=== PATIENT | female | born 1995 | race Caucasian/White ===

== ENCOUNTER 2021-11-23 13:57 | Observation (INO) | payer OTHER ==
[2021-11-23] VITALS (11 sets, daily range): BP systolic 93–110; BP diastolic 51–69
[~2021-11-23] VITALS: Ht 160 cm; Wt 59.1 kg
[2021-11-23 14:36] LABS: BASOPHILS % (AUTO) 0.1 % (0-1); EOSINOPHILS % (AUTO) 0.3 % (0-6); HEMATOCRIT 36.6 % (35.0-45.0); HEMOGLOBIN 12.3 g/dl (12.0-16.0); LYMPHOCYTES # (AUTO) 2.2 X10'3 (1.1-4.8); LYMPHOCYTES % (AUTO) 12.5 % (21-51); MEAN CORPUSCULAR HEMOGLOBIN 31.5 PG (27.0-31.0); MEAN CORPUSCULAR HGB CONC 33.7 g/dL (33.0-36.5); MEAN CORPUSCULAR VOLUME 93.5 FL (78-98); MEAN PLATELET VOLUME 7.4 FL (7.4-10.4); MONOCYTES # (AUTO) 0.8 X10'3 (0-0.9); MONOCYTES % (AUTO) 4.4 % (2-12); NEUTROPHILS # (AUTO) 14.3 X10'3 (1.8-7.7); NEUTROPHILS % (AUTO) 82.7 % (42-75); PLATELET COUNT 300 X10'3 (140-440); RED BLOOD COUNT 3.92 X10'6 (4.20-5.60); WHITE BLOOD COUNT 17.3 X10'3 (4.5-11.0)
[2021-11-23 15:03] LABS: ALANINE AMINOTRANSFERASE 18 U/L (12-78); ALBUMIN 3.9 G/DL (3.4-5.0); ALBUMIN/GLOBULIN RATIO 1.3 (1.1-1.5); ALKALINE PHOSPHATASE 52 IU/L (46-116); ANION GAP 11 (8-16); ASPARTATE AMINO TRANSFERASE 14 U/L (10-37); BILIRUBIN,TOTAL 0.2 MG/DL (0.1-1.0); BLOOD UREA NITROGEN 12 MG/DL (7-18); BUN/CREATININE RATIO 16.7 (6.6-38.0); CALCIUM 8.5 MG/DL (8.5-10.1); CHLORIDE 103 MMOL/L (99-107); CREATININE 0.72 MG/DL (0.40-0.90); GLUCOSE 113 MG/DL (70-104); POTASSIUM 4.2 MMOL/L (3.5-5.1); SODIUM 137 MMOL/L (135-145); TOTAL CARBON DIOXIDE 22.8 MMOL/L (24-32); TOTAL PROTEIN 6.9 G/DL (6.4-8.2); eGFR > 90 ML/MIN
[2021-11-23] MEDS ORDERED: normal saline 1000ML IV soln IVB ONE (15:30)
[2021-11-23] MEDS ORDERED: morphine 4 MG/ML inj SYRINge IV ONE (15:30)
[2021-11-23] MEDS ORDERED: ondansetron/PF 4mg/2ml inj IV ONE (15:30)
[2021-11-23 16:39] LABS: CLARITY,URINE CLEAR (Clear); COLOR,URINE YELLOW (Yellow); GLUCOSE, URINE NEGATIVE (Neg); KETONES,URINE >=80 mg/dl (Neg); LEUKOCYTE ESTERASE ,URINE NEGATIVE (Neg); NITRITES, URINE NEGATIVE (Neg); OCCULT BLOOD,URINE NEGATIVE (Neg); PROTEIN,URINE NEGATIVE (Neg); UROBILINOGEN,URINE 0.2 E.U/dL (0.2-1.0)
[2021-11-23 16:40] LABS: UA COLLECTION TYPE VOIDED
[2021-11-23 16:41] LABS: URINE HCG NEGATIVE (NEG)
[2021-11-23] MEDS ORDERED: piperacillin/tazo 4.5gm/100ml 100 ML IV SCH (17:30)
[2021-11-23] MEDS ORDERED: piperacillin/tazo 4.5gm/100ml 100 ML IV ONE (17:34)
[2021-11-23] MEDS ORDERED: mag hydrox/Alum hydrox/simeth 30ml oral suspension PO PRN (17:50)
[2021-11-23] MEDS ORDERED: morphine 2 MG/ML inj. syringe IV PRN ×3 (17:50→23:15)
[2021-11-23] MEDS ORDERED: acetaminophen 325mg tablet PO PRN (17:50)
[2021-11-23] MEDS ORDERED: magnesium hydroxide 30ml (MOM) UD suspension PO PRN (17:50)
[2021-11-23] MEDS ORDERED: ondansetron/PF 4mg/2ml inj IV PRN ×2 (17:50→23:15)
--- NOTE | 2021-11-23 18:00 | NUR ---
Placed in ER room 9. at the bedside. Last food was at 0900 and last drink was at 1200.
--- NOTE | 2021-11-23 18:18 | NUR ---
Note diamante in EDM - 11/23/21 at 1831 by KIM Pt given and understands d/c instructions. IV d/c'd, catheter was intact. Pt had Neville cath with a leg bag placed. Ambulatory with a slow gait.
--- NOTE | 2021-11-23 18:51 | NUR ---
Pt in bed sitting up, at bedside. Took report from day shift RN.
[2021-11-23] MEDS ORDERED: NO HOME MEDS (19:09)
--- NOTE | 2021-11-23 19:22 | NUR ---
Patient in room ED 9. I have received report from MAIKEL LOVE RN and had the opportunity to ask questions and assume patient care. Addendum: 11/23/21 at 1923 by Padmaja Pizarro RN Amended: Links added.
[2021-11-23] MEDS: docusate sod 100mg capsule PO SCH (20:00)
[2021-11-23] MEDS: normal saline 1000ml 1,000 ML IV SCH (20:18)
--- NOTE | 2021-11-23 20:57 | NUR ---
PT HAS VOIDED NPO SINCE 1100AM TODAY, SHE IS DARTED HAROON WIPES TO ABD DONE, IV ZOSYN INFUSING, AT THE BEDSIDE WITH THE PT AWARE SHE IS GOING TO SURGERY. SHE HAS BEEN UP TO [facility] TO VOID WELL. IV IS IN THE LEFT AC 20. PT NOW WILL GO TO OR TONIGHT.
--- NOTE | 2021-11-23 21:01 | NUR ---
SWAB FOR MRSA AND COVID DONE WELL AND IN THE LAB.
--- NOTE | 2021-11-23 21:15 | NUR ---
PT TAKEN WITH 2 IV PUMPS AND CHARGERS TO THE OR WITH OR LUIS EDUARDO AND RADHIKA, ACCOMPANIED BY PT , OR TECH WILL SHOW HIM ROOM TO WAIT IN FOR THE MD TO TALK WITH HIM AFTER THE SURGERY. AWARE SHE WILL BE IN THE RECOVERY ROOM FOR AWHILE AFTERWARDS SO AFTER HE TALKS WITH MD HE CAN GO HOME AND CALL US LATER TO CHECK IN ON THE PT.
[2021-11-23] MEDS ORDERED: BUPIVAcaine 0.5% inj/PF 30 ML ONE (21:17)
[2021-11-23] MEDS ORDERED: fentaNYL /PF 50mcg/ml 5ml ampule ONE (21:24)
[2021-11-23] MEDS ORDERED: midazolam 1 mg/ML 2ml injection ONE (21:24)
[2021-11-23] MEDS ORDERED: propofol inj 20 ML IV ONE (21:26)
[2021-11-23] MEDS ORDERED: rocuronium 10mg/ml inj IV ONE (21:26)
[2021-11-23] MEDS ORDERED: bacitracin 15gm ointment TP ONE (22:19)
[2021-11-23] MEDS ORDERED: dexamethasone sod phosphate 4mg/ml inj. ONE (22:19)
[2021-11-23] MEDS ORDERED: ondansetron/PF 4mg/2ml inj ONE (22:20)
[2021-11-23] MEDS ORDERED: sugammadex 200mg/2ml injection IV ONE (22:22)
--- NOTE | 2021-11-23 22:35 | NUR ---
Received from OR via HOSPITAL BED, accompanied by Anesthesiologist DR FRANCIS and report given by Anesthesiolgist. PT PRESENTS WITH PIV 20G LEFT AC, ABD DRESSING CLEAN DRY AND INTACT, VSS. Addendum: 11/23/21 at 2302 by Carmen Mendieta RN, RN Amended: Links added.
[2021-11-23] MEDS ORDERED: proCHLORperazine 10 MG/2 ml inj IV PRN (23:15)
[2021-11-23] MEDS ORDERED: morphine 4 MG/ML inj SYRINge IV PRN (23:15)
[2021-11-23] MEDS ORDERED: meperidine/PF 25mg/ml syringe IV PRN ×3 (23:15)
[2021-11-23] MEDS ORDERED: ringers solution, lacted 1,000 ML IV SCH (23:15)
--- NOTE | 2021-11-23 23:35 | NUR ---
Patient in room [facility]. I have received report from TOSHIA BILINGUAL SPEECH LANGUAGE PATHOLOGIST and had the opportunity to ask questions and will assume patient care upon arrival to the floor. Addendum: 11/24/21 at 0008 by Padmaja Pizarro RN Amended: Links added.
--- NOTE | 2021-11-23 23:45 | NUR ---
Report called to receiving nurse DREW ASHLEY. Transferred via HOSPITAL BED BACK TO ROOM 350B. PT'S HAS Belongings. BED IN LOW LOCKED POSITION WITH CALL LIGHT IN REACH, PT HOOKED UP TO [employer] MACHINE, DREW ASHLEY IN ROOM TO DAVID CEDILLO. Special Issues communicated to receiving nurse. Addendum: 11/23/21 at 2354 by Carmen Mendieta RN RN Amended: Links added.
--- NOTE | 2021-11-23 23:45 | NUR ---
received pt to the room and set up with vitals pt drowsy and comfortable at bedside then left after seeing her settled into the room. noted 3 lap sites x2 with steristrips and one with a large bandaide D/I. has her belongings with him and taking them home leaving her with the cell phone. pt appears comfortable and resting scd's on.
[2021-11-24] VITALS (10 sets, daily range): BP systolic 83–96; BP diastolic 42–59
--- NOTE | 2021-11-24 | NUR ---
second assessment was done post op. pt resting very drowsy. vss. Addendum: 11/24/21 at 0301 by Padmaja Pizarro RN Amended: Links added.
[2021-11-24] MEDS: piperacillin/tazo 4.5gm/100ml 100 ML IV SCH ×3 (01:41→09:00)
[2021-11-24] MEDS: normal saline 1000ml 1,000 ML IV SCH (03:50)
--- NOTE | 2021-11-24 05:57 | NUR ---
Student documentation: I have reviewed and agree with all interventions, assessments performed and documented by SCOTT SIMPSON RN STUDENT.Student Medication Administration: For this medication-pass time frame, all medication were reviewed, dispensed, administered and documented per hospital policy by SCOTT SAHA RN STUDENT. Addendum: 11/24/21 at 0558 by Padmaja Pizarro RN Amended: Links added.
--- NOTE | 2021-11-24 06:48 | NUR ---
Problems reprioritized. Patient report given, questions answered & plan of care reviewed with SARIKA ASHLEY. Addendum: 11/24/21 at 0648 by Padmaja Pizarro RN Amended: Links added.
--- NOTE | 2021-11-24 06:51 | NUR ---
Problems reprioritized. Patient report given, questions answered & plan of care reviewed with DION Lucio.
--- NOTE | 2021-11-24 07:16 | NUR ---
Ok per Dr Macdonald for patient to be discharged from surgical standpoint.
[2021-11-24] MEDS: docusate sod 100mg capsule PO SCH (08:00)
== END 2021-11-24 13:54 | disposition home or self-care (01) ==
LOC: ER 13:58 → ED HOLD 17:51 → INTOOBSV 17:51 → ER 18:25 → SUR 3N 19:33
PROVIDERS: ADMIT Family Medicine; ATTEND Family Medicine
DX: K35.80 Unspecified acute appendicitis (principal); Z20.822 Contact with and (suspected) exposure to COVID-19; R11.2 Nausea with vomiting, unspecified; D72.829 Elevated white blood cell count, unspecified; Z79.899 Other long term (current) drug therapy
CPT/HCPCS: 36415; 44950; 74176; 76700; 80053; 81003; 81025; 82948; 85025; 87081; 87635; 96361; 96365; 96366; 96375; 99285; G0378; J1100; J2175; J2250; J2270; J2405; J2543; J2704; J3010; J3490; J7030; J7120; S0020; 96374; A4215; A4618; A7000